=== PATIENT | male | born 1975 | race African-American/Black ===

== ENCOUNTER 2019-01-07 20:24 | Emergency (ER) | payer SELFPAY ==
[2019-01-07] MEDS ORDERED: MORPHINE SULFATE 10 MG/ML INJ IV ONE (21:24)
[2019-01-07] MEDS ORDERED: ONDANSETRON HCL INJ/PF 4 MG/2 ML SDV IV ONE (21:24)
[2019-01-07] MEDS ORDERED: NORMAL SALINE 1000 ML 1,000 ML IV ONE (21:25)
--- NOTE | 2019-01-07 21:31 | ER Document Report ---
ED Medical Screen (RME) - General Chief Complaint: Difficulty Swallowing Stated Complaint: DIFFICULTY SWALLOWING Time Seen by Provider: 01/07/19 21:23 Primary Care Provider: SHIRAZ CALHOUN [Primary Care Provider] - Follow up as needed Notes: 43-year-old male with chief complaint of swelling of the face, chin, neck, states this has been progressively worse over the past day or so, he states he was pulling hairs out of his face that seemed infected but then his whole face started swelling. He reports pain with swallowing but he is still able to swallow. He states he has eaten less today. Denies fever. Denies any medical history. TRAVEL OUTSIDE OF THE [place] IN LAST 30 DAYS: No - Related Data Allergies/Adverse Reactions: No Known Allergies Allergy (Verified 01/07/19 20:35) Physical Exam - Vital signs Vitals: Temp Pulse Resp BP Pulse Ox 98.8 F 59 L 16 184/102 H 100 01/07/19 20:58 01/07/19 20:58 01/07/19 20:58 01/07/19 20:58 01/07/19 20:58 - HEENT Pharynx: Other - Patient has trismus with some difficulty opening the mouth, oral exam appears unremarkable, airway is clear, patient has swelling to the right side of face and swelling to the submandibular area with tenderness and induration. Course - Re-evaluation Re-evalutation: Patient with swelling of the face but more concerning swelling of the submandibular area suggesting a component of Ladarius's angina. Patient upgraded to triage level 2, called for patient to be placed in a bed, imaging and labs ordered. I have greeted and performed a rapid initial assessment of this patient. A comprehensive ED assessment and evaluation of the patient, analysis of test results and completion of the medical decision making process will be conducted by additional ED providers. - Vital Signs Vital signs: Temp Pulse Resp BP Pulse Ox 98.8 F 59 L 16 184/102 H 100 01/07/19 20:58 01/07/19 20:58 01/07/19 20:58 01/07/19 20:58 01/07/19 20:58 Doctor's Discharge - Discharge Referrals: SHIRAZ CALHOUN [Primary Care Provider] - Follow up as needed
[2019-01-07] MEDS ORDERED: CLINDAMYCIN 600 MG/D5W RTU 600 MG/50 ML RTUPB IV ONE (21:49)
--- NOTE | 2019-01-07 21:52 | ER Document Report ---
ED GI/ - General Chief Complaint: Difficulty Swallowing Stated Complaint: DIFFICULTY SWALLOWING Time Seen by Provider: 01/07/19 21:23 Primary Care Provider: [facility] [Provider Group] - Follow up as needed [facility] [Provider Group] - Follow up as needed Notes: Patient is a 43-year-old male that comes by EMS to the Emergency Department for chief complaint of swelling of the face, chin, neck, states this has been progressively worse over the past day or so, he states he was pulling hairs out of his face that seemed infected but then his whole face started swelling. He reports pain with swallowing but he is still able to swallow. He states he has eaten less today. Denies fever. Past medical history of hypertension, previously medicated years ago, smoking, and he smokes weed but he denies recreational drugs otherwise. He denies any surgeries or medical history otherwise. TRAVEL OUTSIDE OF THE [place] IN LAST 30 DAYS: No - Related Data Allergies/Adverse Reactions: No Known Allergies Allergy (Verified 01/07/19 20:35) Past Medical History - General Information source: Patient - Social History Smoking Status: Current Every Day Smoker Drug Abuse: Marijuana Lives with: Alone Family History: Reviewed & Not Pertinent - Past Medical History Cardiac Medical History: Reports: Hx Hypertension Surgical Hx: Negative - Immunizations Immunizations up to date: Yes Hx Diphtheria, Pertussis, Tetanus Vaccination: Yes Review of Systems - Review of Systems Constitutional: No symptoms reported EENT: See HPI Cardiovascular: No symptoms reported Respiratory: No symptoms reported Gastrointestinal: No symptoms reported Genitourinary: No symptoms reported Male Genitourinary: No symptoms reported Musculoskeletal: No symptoms reported Skin: See HPI Hematologic/Lymphatic: No symptoms reported Neurological/Psychological: No symptoms reported Physical Exam - Vital signs Vitals: Temp Pulse Resp BP Pulse Ox 98.8 F 59 L 16 184/102 H 100 01/07/19 20:58 01/07/19 20:58 01/07/19 20:58 01/07/19 20:58 01/07/19 20:58 - Notes Notes: GENERAL: Alert, appears mildly uncomfortable but not in severe distress HEAD: Normocephalic, atraumatic. EYES: Pupils equal, round, and reactive to light. Extraocular movements intact. ENT: Swelling over the right side of the face extending from just below the zygomatic area down to the jaw and underneath the maxillary line, over to the chin and in the submandibular area. Area is erythematous and tender. No specific noted area of induration or fluctuance, no draining area either. Patient with mild trismus but tongue is unremarkable, uvula and oral pharyngeal exam unremarkable, dental exam shows some widespread decay but is otherwise unremarkable. Nasal, ear, eye exams are unremarkable. NECK: Full range of motion. Supple. Trachea midline. LUNGS: Clear to auscultation bilaterally, no wheezes, rales, or rhonchi. No re spiratory distress. HEART: Regular rate and rhythm. No murmur ABDOMEN: Soft, non-tender. Non-distended. Bowel sounds present in all 4 quadrants. GENITOURINARY: Deferred EXTREMITIES: Moves all 4 extremities spontaneously. No edema, normal radial and dorsalis pedis pulses bilaterally. No cyanosis. BACK: no cervical, thoracic, lumbar midline tenderness. No saddle anesthesia, normal distal neurovascular exam. Moves all extremities in full range of motion. NEUROLOGICAL: Alert and oriented x3. Normal speech. Cranial nerves II through XII grossly intact. PSYCH: Normal affect, normal mood. SKIN: Warm, dry, normal turgor. No rashes or lesions noted. Course - Re-evaluation Re-evalutation: Patient was swelling on the right side of the face extending over the mandible area and extending to the chin and submandibular area. Because of this a CAT scan was performed to rule out abscess. Patient has some mild trismus but the airway is intact and he has no difficulty swallowing. No drooling. CBC, chemistry unremarkable and nonspecific. She is hypertensive but his renal function is unremarkable. He does not have a headache or chest pain. He states he is off of his blood pressure medications, he states he used to take 2 medic ations for this at one point but this was over 4 years ago. CAT scan showing cellulitis but no abscess is seen, nonspecific findings otherwise. Discussed CAT scan results with Dr. Cervantes. Patient reevaluated after being given clindamycin IV, swelling is actually significantly improved, patient is telling me he feels much improved as well. As result patient will be kept on clindamycin outpatient, discussed prescriptions, primary care follow-up, dental follow-up, and return precautions in detail. Patient states understanding, appreciation, agreement. Stable at time of discharge. - Vital Signs Vital signs: Temp Pulse Resp BP Pulse Ox 98.8 F 59 L 16 184/102 H 100 01/07/19 20:58 01/07/19 20:58 01/07/19 20:58 01/07/19 20:58 01/07/19 20:58 - Laboratory Result Diagrams: 01/07/19 21:49 01/07/19 21:49 Laboratory results interpreted by me: 01/07/19 01/07/19 21:49 21:49 Hgb 12.0 L Hct 36.3 L MCV 68 L MCH 22.5 L RDW 16.8 H Sodium 135.7 L Potassium 3.5 L Carbon Dioxide 32 H Discharge - Discharge Clinical Impression: Facial cellulitis, Essential hypertension Condition: Stable Disposition: HOME, SELF-CARE Instructions: Oral Narcotic Medication ([facility]) Additional Instructions: Your work-up indicates cellulitis of the face (skin infection but there is no abscess seen at this time). Take the antibiotics as prescribed. Take the blood pressure medication as prescribed, call the clinic for additional evaluation and additional management of your blood pressure. Also call the dental clinic for management of your dental breakdown to avoid dental infections. Come back if you are worse including difficulty swallowing or breathing, increased swelling, fever/chills, or any other concerning or worsening symptoms. Prescriptions: Clindamycin HCl [Cleocin 150 mg Capsule] 150 mg PO Q6 #56 capsule Hydrochlorothiazide [Hydrodiuril 25 mg Tablet] 25 mg PO QAM #30 tablet Hydrocodone/Acetaminophen [[place] 5-325 mg Tablet] 1 - 2 tab PO ASDIR #8 tablet Forms: Return to Work Referrals: [facility] [Provider Group] - Follow up as needed [facility] [Provider Group] - Follow up as needed
[2019-01-07 22:03] LABS: ABSOLUTE BASOPHILS # (AUTO) 0.1 10^3/uL (0.0-0.2); ABSOLUTE EOSINOPHILS # (AUTO) 0.1 10^3/uL (0.0-0.6); ABSOLUTE LYMPHOCYTES (AUTO) 2.5 10^3/uL (0.5-4.7); ABSOLUTE MONOCYTES (AUTO) 0.9 10^3/uL (0.1-1.4); ABSOLUTE NEUT (AUTO) 5.2 10^3/uL (1.7-8.2); BASOPHILS % (AUTO) 0.7 % (0-2); EOSINOPHILS % (AUTO) 1.2 % (0-6); HEMATOCRIT 36.3 % (37.9-51.0); LYMPHOCYTES % (AUTO) 28.2 % (13-45); MEAN CORPUSCULAR HEMOGLOBIN 22.5 pg (27.0-33.4); MEAN CORPUSCULAR HGB CONC 32.9 g/dL (32.0-36.0); MEAN CORPUSCULAR VOLUME 68 fl (80-97); MONOCYTES % (AUTO) 10.4 % (3-13); PLATELET COUNT 191 10^3/uL (150-450); RED BLOOD COUNT 5.31 10^6/uL (4.35-5.55); RED CELL DISTRIBUTION WIDTH 16.8 % (11.5-14.0); SEGMENTED NEUTROPHILS % (AUTO) 59.5 % (42-78); TOTAL CELLS COUNTED % (AUTO) 100 %; WHITE BLOOD COUNT 8.7 10^3/uL (4.0-10.5)
[2019-01-07 22:17] LABS: ANION GAP 6 (5-19); BLOOD UREA NITROGEN 11 mg/dL (7-20); CALCIUM 9.5 mg/dL (8.4-10.2); CARBON DIOXIDE 32 mmol/L (22-30); CHLORIDE 98 mmol/L (98-107); GLUCOSE 96 mg/dL (75-110); POTASSIUM 3.5 mmol/L (3.6-5.0)
--- NOTE | 2019-01-07 23:45 | RADIOLOGY REPORT (SQ) ---
EXAM DESCRIPTION: CT NECK WITH IV CONTRAST COMPLETED DATE/TME: 01/07/2019 21:23 CLINICAL HISTORY: 43 years, Male, right facial and chin swelling; ?abscess COMPARISON: None. TECHNIQUE: Contrast enhanced CT of the neck was performed. Coronal and sagittal reformations were created. Images stored on PACS. All CT scanners at this facility use dose modulation, iterative reconstruction, and/or weight based dosing when appropriate to reduce radiation dose to as low as reasonably achievable (ALARA). [facility]: Dose Right [facility]: CareDose [facility]: Dose Right [facility]: Teradose 4D [facility]: AimWith LIMITATIONS: None. FINDINGS: Limited evaluation of the chest reveals emphysematous changes about both lung apices with a large bulla about the anterior aspect of the left upper lobe. Thyroid gland enhances symmetrically. Hypopharynx shows no suspicious abnormality though there is a small amount of opacity within the vallecula and left pyriform sinus. A few calcifications are noted about the right palatine tonsil on image 44 series 3. The bilateral parotid and submandibular glands show no suspicious findings. Globes and orbits show no acute abnormality. However, there are remote posttraumatic/postsurgical changes about the inferior left orbital wall as well as the left anterior maxillary antral wall. Additional surgical plate is noted about the superolateral aspect of the left orbital rim. There is also a remote left lamina papyracea fracture. Otherwise, visualized paranasal sinuses and mastoid air cells are clear. Limited evaluation of the brain parenchyma shows no suspicious abnormality. Mild diffuse inflammatory stranding is noted about the superficial soft tissues of the chin extending superiorly into the premandibular soft tissues. Assessment for a superimposed odontogenic abscess is limited secondary to the presence of extensive streak artifact from the patient's indwelling dental material. No large odontogenic abscess is clearly identified. A few mildly prominent submental lymph nodes are evident as well as a few bilateral jugulodigastric lymph nodes, likely reactive. The largest is located about the right level IIa region measuring 1.3 x 1.5 cm in size on image 44 series 3. Bone windows show no suspicious findings. IMPRESSION: Mild diffuse soft tissue swelling about the soft tissues of the chin extending into the premandibular soft tissues, suspicious for facial cellulitis. No obvious abscess is identified though assessment for a superimposed odontogenic abscess is limited secondary to streak artifact from the patient's dental material. Small tonsilliths located within the right palatine tonsil. Heterogenous density within the vallecula and left pyriform sinus, most likely indicating debris/retained secretion. This could be confirmed with direct visualization. Emphysematous changes about both lung apices with a large bulla about the left hemithorax. TECHNICAL DOCUMENTATION: Quality ID # [id number]: Final reports with documentation of one or more dose reduction techniques (e.g., Automated exposure control, adjustment of the mA and/or kV according to patient size, use of iterative reconstruction technique) copyright 2011 [employer]- All Rights Reserved
[2019-01-07] MEDS ORDERED: HYDROCODONE/ACETAMINOPHEN 5-325 MG (6 TAB/ER DISP) PO PRN (23:57)
[2019-01-08 01:45] VITALS: BP 174/103
== END 2019-01-08 00:45 | disposition home or self-care (01) ==
LOC: ER 20:24
DX: L03.211 Cellulitis of face (principal); K02.9 Dental caries, unspecified; R25.2 Cramp and spasm; I10 Essential (primary) hypertension; R22.1 Localized swelling, mass and lump, neck; F17.200 Nicotine dependence, unspecified, uncomplicated; F12.10 Cannabis abuse, uncomplicated
CPT/HCPCS: 36415; 85025; 80048; 70491; J2270; J2405; J7030